=== PATIENT | female | born 1960 | race Native Hawaiian/Other Pacific Islander ===

== ENCOUNTER 2017-07-04 14:53 | Outpatient (CLI) | payer BC ==
[2017-07-04 16:20] LABS: PLATELET COUNT 238 K/uL (152-353)
[2017-07-04 16:25] LABS: POTASSIUM 3.7 mmol/L (3.6-5.2)
== END 2017-07-04 20:58 | disposition home or self-care (01) ==
LOC: LABW 14:53
PROVIDERS: Obstetrics & Gynecology Gynecologic Oncology
DX: Z01.818 Encounter for other preprocedural examination (principal)
CPT/HCPCS: 36415; 80048; 85027; 93005

== ENCOUNTER 2022-08-08 07:57 | Outpatient (CLI) | payer BC | END 2022-08-08 19:05 | disposition home or self-care (01) | LOC: US 07:57 | PROVIDERS: ATTEND Nurse Practitioner Family | DX: R10.11 Right upper quadrant pain (principal); R19.7 Diarrhea, unspecified ==

== ENCOUNTER 2022-08-29 07:51 | Outpatient (CLI) | payer BC | END 2022-08-29 18:54 | disposition home or self-care (01) | LOC: MAMMO 07:51 → CT 08:00 → MAMMO 18:54 | PROVIDERS: ATTEND Nurse Practitioner Family | DX: Z12.31 Encounter for screening mammogram for malignant neoplasm of breast (principal) ==